=== PATIENT | male | born 1945 | race Caucasian/White ===

== ENCOUNTER 2020-12-22 14:00 | Outpatient (CLI) | payer MEDICARE | END 2020-12-22 23:59 | disposition home or self-care (01) | LOC: RAD 14:00 | PROVIDERS: ATTEND Orthopaedic Surgery | DX: M47.816 Spondylosis without myelopathy or radiculopathy, lumbar region (principal); M48.07 Spinal stenosis, lumbosacral region; I70.0 Atherosclerosis of aorta | CPT/HCPCS: 72131; 72148 ==